=== PATIENT | female | born 1965 | race Two or more races ===

== ENCOUNTER 2021-09-24 22:23 | Inpatient (IN) ==
[2021-09-24] MEDS ORDERED: ZOSYN VIAL 3.375 GRAMS 3.375 G in NS 100 ML IV 100 ML IV ONE (23:09)
--- NOTE | 2021-09-24 23:13 | ED.ABDFE ---
HPI Time Seen Time Seen by Provider: 09/24/21 23:07 PCP Primary Care Physician: BEVERLY HPI Comment HPI Comment: PATIENT IS 56YR OLD IN ER WITH ABDOMINAL PAIN. SHE IS CALL TO COME TO ER BECAUSE OUT PATIENT CT ABDOMEN AND PELVIS DONE ON SUNDAY REPORTS IN CARCERATED SUPRAUMBILICAL HERNIA. SHE IS HERE FOR EMERGENT SURGICAL CONSULT. Complaint Doctors Chief Complaint Comments: ABDOMINAL PAIN. Chief Complaint:: PT AMBULATORY IN ED WITH C/O ABD PAIN. PT WAS NOTIFIED OF OUTPT CT READING AND INSTRUCTED TO COME TO ER. COVID-19 Coronavirus risk:travel/contact w/high risk person: No Has patient experienced Coronavirus symptoms: No Reviewed Nurses Notes Review: Yes Source History Provided: Patient Mode of arrival Mode of Arrival: Ambulatory Timing Onset of Chief Complaint: 09/24/21 Came on: Gradually Duration Since Onset: Intermittent Duration: Weeks Location Location: Periumbilical (MID ABDOMINAL PAIN.) Severity Severity: Moderate Quality Quality: Cramping and Sharp Context History of: Abdominal surgery Modifying factors Worsening Factors: Movement Improving Factors: Lying Still Associated signs and symptoms Associated Signs and Symptoms: None Other history Other History: PERSISTENT ABDOMINAL PAIN. PMH PMH Past Medical History: Yes Past Medical History: Diabetes and Hypertension Past Surgical History: Yes Surgical History: Cholecystectomy Past Surgical History Comment: HERNIA X 3 RIBS Family History History of Family Medical Conditions: Yes Family Medical History: Diabetes Mellitus Social History Does patient currently use any type of tobacco product: No Have you used tobacco products in the last 12 months: No Type of Tobacco Use: None Does any household member use tobacco: No Alcohol Use: None Do you use any recreational Drugs:: No Lives With: Family Lives Where: Home Travel Risk Coronavirus risk:travel/contact w/high risk person: No Has patient experienced Coronavirus symptoms: No Infectious screening In the last 2 months have you had wt loss of >10#?: NO Have you had fever, night sweats or hemotysis?: No Have you traveled outside the country in the last 6 months?: No Isolation: Standard ROS Review of Systems Constitutional: No Symptoms Reported and See HPI Eyes: No Symptoms Reported and See HPI ENTM: No Symptoms Reported and See HPI Respiratoy: No Symptoms Reported and See HPI Cardiovascular: No Symptoms Reported and See HPI Gastrointestinal/Abdominal: No Symptoms Reported and See HPI Genitourinary: No Symptoms Reported and See HPI Neurological: No Symptoms Reported and See HPI Musculoskeletal: No Symptoms Reported and See HPI Integumentary: No Symptoms Reported and See HPI Hematologic/Lymphatic: No Symptoms Reported and See HPI Endocrine: No Symptoms Reported and See HPI Psychiatric: No Symptoms Reported and See HPI All Other Systems: Reviewed and Negative PE Vital Signs Vitals: Temperature 98.2 F Pulse Rate 73 Respiratory Rate 20 Blood Pressure 182/93 O2 Sat by Pulse Oximetry 98 General Limitations: No Limitations and Language Barrier General Appearance: Alert and In No Apparent Distress Head Head Exam: Normal Inspection Eyes Eye exam: Normal Appearance ENT ENT Exam: Normal Exam Neck Neck Exam: Normal Inspection Chest Chest Inspection: Normal Inspection Respiratory Respiratory Exam: Normal Lung Sounds Bilat Cardiovascular Cardiovascular Exam: Regular Rate and Normal Rhythm Abdominal Exam Abdominal Exam: Normal Inspection and Normal Bowel Sounds Rectal Rectal Exam: Deferred Back Back Exam: Normal Inspection Extremeties Extremities Exam: Normal Inspection Neurologic Neurological Exam: Alert and Oriented X3 Psychiatric Psychiatric Exam: Normal Affect and Normal Mood Skin Skin Exam: Warm, Dry and Intact COURSE Treatment Treatment: SEE ORDERS DONE WHILE PATIENT WAS IN ER. Consultation Consultation Comments: DISCUSED PATIENT WITH DR. ANGELES. HE RECOMENT TUNNEL ELASTIC OPERATOR LOCKSTITCH DOCTOR TO ADMIT PATIENT AND KEEP HER NPO. WILL ADMIT PATIENT. Education/Counseling Education/Counseling: Patient Educated On: Diagnosis ROR Labs Reviewed Laboratory Results Reviewed?: Yes Result Diagrams: 09/25/21 04:37 09/25/21 04:37 Laboratory: WBC 4.7 X10^3/uL (3.6-10.0) 09/24/21 23:40 RBC 4.41 X10^6/uL (3.5-5.4) 09/24/21 23:40 Hgb 13.1 g/dL (12.0-16.0) 09/24/21 23:40 Hct 38.1 % (36.0-47.0) 09/24/21 23:40 MCV 86.4 fL (80.0-100.0) 09/24/21 23:40 MCH 29.8 pg (27.0-34.0) 09/24/21 23:40 MCHC 34.4 g/dL (33.0-35.0) 09/24/21 23:40 RDW 14.2 % (11.6-16.5) 09/24/21 23:40 Plt Count 172 X10^3/uL (150.0-450.0) 09/24/21 23:40 MPV 8.8 fL (7.4-11.0) 09/24/21 23:40 Neut % (Auto) 63.6 % (42.0-75.0) 09/24/21 23:40 Lymph % (Auto) 24.8 % (21.0-51.0) 09/24/21 23:40 [place] % (Auto) 8.7 % (0.0-13.0) 09/24/21 23:40 Eos % (Auto) 2.5 % (0.9-2.9) 09/24/21 23:40 Baso % (Auto) 0.4 % (0.2-1.0) 09/24/21 23:40 Neut # (Auto) 3.0 x10^3/uL (2.2-4.8) 09/24/21 23:40 Lymph # (Auto) 1.2 X10^3/uL (1.3-2.9) L 09/24/21 23:40 [place] # (Auto) 0.4 x10^3/uL (0.3-0.8) 09/24/21 23:40 Eos # (Auto) 0.1 x10^3/uL (0.0-0.2) 09/24/21 23:40 Baso # (Auto) 0.0 X10^3/uL (0.0-0.1) 09/24/21 23:40 Absolute Nucleated RBC 0.1 /100WBC 09/24/21 23:40 Sodium 139 mmol/L (136-145) 09/24/21 23:40 Corrected Sodium 144 mmol/L (136-145) 09/24/21 23:40 Potassium 3.4 mmol/L (3.5-5.1) L 09/24/21 23:40 Chloride 103 mmol/L (98-107) 09/24/21 23:40 Carbon Dioxide 29.3 mmol/L (21-32) 09/24/21 23:40 BUN 9 mg/dL (7-18) 09/24/21 23:40 Creatinine 0.67 mg/dL (0.55-1.02) 09/24/21 23:40 Est GFR (MDRD) Af Amer > 60 (>60) 09/24/21 23:40 Est GFR (MDRD) Non-Af > 60 (>60) 09/24/21 23:40 Glucose 303 mg/dL (65-99) H 09/24/21 23:40 Calcium 8.1 mg/dL (8.5-10.1) L 09/24/21 23:40 Corrected Calcium TNP 09/24/21 23:40 Total Bilirubin 0.40 mg/dL (0.2-1.0) 09/24/21 23:40 AST 78 Units/L (15-37) H 09/24/21 23:40 ALT 105 Units/L (12-78) H 09/24/21 23:40 Alkaline Phosphatase 163 Units/L (46-116) H 09/24/21 23:40 Total Protein 7.2 g/dL (6.4-8.2) 09/24/21 23:40 Albumin 3.4 g/dL (3.4-5.0) 09/24/21 23:40 Globulin 3.8 g/dL (2.5-4.5) 09/24/21 23:40 Albumin/Globulin Ratio 0.9 Ratio (1.1-2.1) L 09/24/21 23:40 Amylase 50 Units/L (25-115) 09/24/21 23:40 Lipase 94 Units/L (73-393) 09/24/21 23:40 SARS-CoV-2 (PCR) Negative (NEGATIVE) 09/24/21 23:58 Influenza Type A (PCR) Negative (NEGATIVE) 09/24/21 23:58 Influenza Type B (PCR) Negative (NEGATIVE) 09/24/21 23:58 RSV (PCR) Negative (NEGATIVE) 09/24/21 23:58 Other Results Comments: REVIEWED XRAY REPORT. Opioid Opioid Risk Tool Age ([place] box if 16-45): No History of Preadolescent Sexual Abuse: No Total: 0 Total Score Risk Category: Low Risk Copyright: Vasiliy SPENCE predicting aberrant behaviors Diagnosis Discharge Problem: Incarcerated umbilical hernia Abdominal pain Qualifiers: Abdominal location: periumbilical Qualified Code(s): R10.33 - Periumbilical pain
[2021-09-24] MEDS ORDERED: NS 1,000 ML IV 1,000 ML ONE (23:36)
[2021-09-24] MEDS: NS 1,000 ML IV 1,000 ML IV SCH (23:50)
[2021-09-24 23:53] LABS: BASOPHILS % (AUTO) 0.4 % (0.2-1.0); EOSINOPHILS # (AUTO) 0.1 x10^3/uL (0.0-0.2); EOSINOPHILS % (AUTO) 2.5 % (0.9-2.9); HEMATOCRIT 38.1 % (36.0-47.0); HEMOGLOBIN 13.1 g/dL (12.0-16.0); LYMPHOCYTES # (AUTO) 1.2 X10^3/uL (1.3-2.9); LYMPHOCYTES % (AUTO) 24.8 % (21.0-51.0); MEAN CORPUSCULAR HEMOGLOBIN 29.8 pg (27.0-34.0); MEAN CORPUSCULAR HGB CONC 34.4 g/dL (33.0-35.0); MEAN CORPUSCULAR VOLUME 86.4 fL (80.0-100.0); MEAN PLATELET VOLUME 8.8 fL (7.4-11.0); MONOCYTES # (AUTO) 0.4 x10^3/uL (0.3-0.8); MONOCYTES % (AUTO) 8.7 % (0.0-13.0); NEUTROPHILS % (AUTO) 63.6 % (42.0-75.0); RED BLOOD COUNT 4.41 X10^6/uL (3.5-5.4); RED CELL DISTRIBUTION WIDTH 14.2 % (11.6-16.5); WHITE BLOOD COUNT 4.7 X10^3/uL (3.6-10.0)
[2021-09-25 00:01] LABS: ALANINE AMINOTRANSFERASE 105 Units/L (12-78); ALBUMIN 3.4 g/dL (3.4-5.0); ALKALINE PHOSPHATASE 163 Units/L (46-116); AMYLASE 50 Units/L (25-115); ASPARTATE AMINO TRANSFERASE 78 Units/L (15-37); BLOOD UREA NITROGEN 9 mg/dL (7-18); CALCIUM 8.1 mg/dL (8.5-10.1); CARBON DIOXIDE 29.3 mmol/L (21-32); CHLORIDE 103 mmol/L (98-107); COR NA(FOR HYPERGLY) 144 mmol/L (136-145); CREATININE 0.67 mg/dL (0.55-1.02); LIPASE 94 Units/L (73-393); SODIUM 139 mmol/L (136-145); TOTAL PROTEIN 7.2 g/dL (6.4-8.2); eGFR NON BLACK RACES > 60 (>60)
[2021-09-25] MEDS ORDERED: ZOFRAN INJ 4 MG VIAL IVP PRN (00:20)
[2021-09-25] MEDS ORDERED: MORPHINE SULFATE INJ 2 MG INJ IVP PRN (00:20)
[2021-09-25] MEDS: LEVAQUIN PREMIX IV 500 MG 500 MG/100 ML BAG IV SCH (00:42)
[2021-09-25] MEDS ORDERED: NovoLIN R (or HumuLIN R) SUBCUT PRN (00:43)
[2021-09-25 01:25] VITALS: BMI 34.9
[2021-09-25 04:16] LABS: BILIRUBIN,URINE NEGATIVE (NEGATIVE); BLOOD/HEMOGLOBIN,URINE NEGATIVE (NEGATIVE); GLUCOSE, URINE NEGATIVE (NEGATIVE); KETONES,URINE NEGATIVE (NEGATIVE); LEUKOCYTE ESTERASE ,URINE 1+ (NEGATIVE); NITRITES,URINE NEGATIVE (NEGATIVE); PROTEIN,URINE NEGATIVE (NEGATIVE); UROBILINOGEN,URINE NORMAL (NORMAL)
[2021-09-25 04:22] LABS: APPEARANCE,URINE CLEAR (CLEAR); COLOR,URINE PALE YELLOW (YELLOW)
[2021-09-25 04:23] LABS: BACTERIA,URINE NEGATIVE /HPF (NEGATIVE); RBC,URINE 0-2 /HPF (0-3); SQUAMOUS EPITHELIAL CELL,UR RARE /HPF (NEGATIVE)
[2021-09-25 05:25] LABS: BASOPHILS % (AUTO) 0.5 % (0.2-1.0); EOSINOPHILS # (AUTO) 0.1 x10^3/uL (0.0-0.2); EOSINOPHILS % (AUTO) 1.8 % (0.9-2.9); HEMATOCRIT 36.5 % (36.0-47.0); HEMOGLOBIN 12.6 g/dL (12.0-16.0); LYMPHOCYTES # (AUTO) 1.1 X10^3/uL (1.3-2.9); LYMPHOCYTES % (AUTO) 21.5 % (21.0-51.0); MEAN CORPUSCULAR HEMOGLOBIN 29.6 pg (27.0-34.0); MEAN CORPUSCULAR HGB CONC 34.6 g/dL (33.0-35.0); MEAN CORPUSCULAR VOLUME 85.6 fL (80.0-100.0); MEAN PLATELET VOLUME 9.2 fL (7.4-11.0); MONOCYTES # (AUTO) 0.4 x10^3/uL (0.3-0.8); MONOCYTES % (AUTO) 8.1 % (0.0-13.0); NEUTROPHILS # (AUTO) 3.5 x10^3/uL (2.2-4.8); NEUTROPHILS % (AUTO) 68.1 % (42.0-75.0); RED BLOOD COUNT 4.26 X10^6/uL (3.5-5.4); RED CELL DISTRIBUTION WIDTH 13.9 % (11.6-16.5); WHITE BLOOD COUNT 5.1 X10^3/uL (3.6-10.0)
[2021-09-25 05:31] LABS: ALANINE AMINOTRANSFERASE 100 Units/L (12-78); ALBUMIN 3.1 g/dL (3.4-5.0); ALKALINE PHOSPHATASE 128 Units/L (46-116); ASPARTATE AMINO TRANSFERASE 74 Units/L (15-37); BLOOD UREA NITROGEN 8 mg/dL (7-18); CALCIUM 7.9 mg/dL (8.5-10.1); CARBON DIOXIDE 29.4 mmol/L (21-32); CHLORIDE 106 mmol/L (98-107); COR CA(FOR HYPOALB) 8.6 mg/dL (8.5-10.1); COR NA(FOR HYPERGLY) 141 mmol/L (136-145); CREATININE 0.56 mg/dL (0.55-1.02); MAGNESIUM 1.9 mg/dL (1.7-2.9); SODIUM 140 mmol/L (136-145); TOTAL PROTEIN 6.8 g/dL (6.4-8.2); eGFR NON BLACK RACES > 60 (>60)
[2021-09-25] MEDS ORDERED: KLOR-CON PO PRN (06:09)
[2021-09-25] MEDS ORDERED: POTASSIUM CHL 40 MEQ/NS 0.45% 500 ML IV PRN (06:09)
[2021-09-25] MEDS ORDERED: K-DUR TAB 20 MEQ PO PRN (06:09)
[2021-09-25] MEDS ORDERED: POTASSIUM CHL 60 MEQ/NS 0.45% 500 ML IV PRN (06:09)
[2021-09-25] MEDS ORDERED: POTASSIUM CHLORIDE LIQ 20 MEQ UDC PO PRN (06:09)
[2021-09-25] MEDS ORDERED: K-RIDER 10 MEQ/NS 100 ML 10 MEQ/100 ML BAG IV PRN (06:09)
[2021-09-25] MEDS ORDERED: MICRO K EXTEN CAP 10 MEQ PO PRN (06:09)
[2021-09-25] MEDS: NS 1,000 ML IV 1,000 ML IV SCH ×2 (08:24→17:02)
--- NOTE | 2021-09-25 11:25 | DR.H&P ---
H&P History & Physical for Day of: H&P Date: 09/25/21 Chief Complaint Chief Complaint: abdominal pain, abnormal CT Allergies Allergies Allergy/AdvReac Type Severity Reaction Status Date / Time Penicillins Allergy Verified 09/24/21 23:31 History of Present Illness History of Present Illness: Ms Davison is a 56y/o female with a PMH of diabetes, HTN and several abdominal hernia repairs presented for outpatient CTAP on 09/23/21 due to increased abdominal pain. Patient has a hx of 3 hernia repairs, last one in 2019. She denies N/V/D or constipation. Denies fever or chills. CTAP showed incarcerated umbilical ventral abdominal wall hernia, no strangulation or obstruction noted and recommended surgical consulted. Patient was notified and came to the ER for evaluation. She has some mild abdominal discomfort. She is NPO pending Dr Osborne's evaluation. Labs/imaging reviewed CTAP: Large supraumbilical ventral abdominal wall hernia with herniation of omental fat and small bowel loops through the defect. This is incarcerated but not yet strangulated. No obstructive pattern is yet seen. Subjacent mesenteric panniculitis is noted. A surgical consult is recommended for these findings. Plan: Keep NPO, continue hydration and IV levaquin. Follow surgery recomme ndations. Discussed with patient and family member at bedside. Monitor AM labs/imaging. Past Medical History Past Medical History: Diabetes and Hypertension Past Surgical History Surgical History: Cholecystectomy and Other Additional Surgical History: abdominal hernia repair Family History Family Medical History: Diabetes Mellitus Social History Does patient currently use any type of tobacco product: No Have you used tobacco products in the last 12 months: No Type of Tobacco Use: None Does any household member use tobacco: No Alcohol Use: None Drug Use: None Prescription drug monitoring program results: PDMP reviewed and no concerns identified Medications Home Medications: Penicillins Allergy (Verified 09/24/21 23:31) CONTINUE taking the following medications losartan 50 mg PO DAILY 09/24/21 [History] metformin 850 mg PO DAILY 09/24/21 [History] Labs Result Diagrams: 09/25/21 04:37 09/25/21 04:37 Labs: Laboratory WBC 5.1 X10^3/uL (3.6-10.0) 09/25/21 04:37 RBC 4.26 X10^6/uL (3.5-5.4) 09/25/21 04:37 Hgb 12.6 g/dL (12.0-16.0) 09/25/21 04:37 Hct 36.5 % (36.0-47.0) 09/25/21 04:37 MCV 85.6 fL (80.0-100.0) 09/25/21 04:37 MCH 29.6 pg (27.0-34.0) 09/25/21 04:37 MCHC 34.6 g/dL (33.0-35.0) 09/25/21 04:37 RDW 13.9 % (11.6-16.5) 09/25/21 04:37 Plt Count 175 X10^3/uL (150.0-450.0) 09/25/21 04:37 MPV 9.2 fL (7.4-11.0) 09/25/21 04:37 Neut % (Auto) 68.1 % (42.0-75.0) 09/25/21 04:37 Lymph % (Auto) 21.5 % (21.0-51.0) 09/25/21 04:37 [place] % (Auto) 8.1 % (0.0-13.0) 09/25/21 04:37 Eos % (Auto) 1.8 % (0.9-2.9) 09/25/21 04:37 Baso % (Auto) 0.5 % (0.2-1.0) 09/25/21 04:37 Neut # (Auto) 3.5 x10^3/uL (2.2-4.8) 09/25/21 04:37 Lymph # (Auto) 1.1 X10^3/uL (1.3-2.9) L 09/25/21 04:37 [place] # (Auto) 0.4 x10^3/uL (0.3-0.8) 09/25/21 04:37 Eos # (Auto) 0.1 x10^3/uL (0.0-0.2) 09/25/21 04:37 Baso # (Auto) 0.0 X10^3/uL (0.0-0.1) 09/25/21 04:37 Absolute Nucleated RBC 0.0 /100WBC 09/25/21 04:37 Sodium 140 mmol/L (136-145) 09/25/21 04:37 Corrected Sodium 141 mmol/L (136-145) 09/25/21 04:37 Potassium 3.8 mmol/L (3.5-5.1) 09/25/21 04:37 Chloride 106 mmol/L (98-107) 09/25/21 04:37 Carbon Dioxide 29.4 mmol/L (21-32) 09/25/21 04:37 BUN 8 mg/dL (7-18) 09/25/21 04:37 Creatinine 0.56 mg/dL (0.55-1.02) 09/25/21 04:37 Est GFR (MDRD) Af Amer > 60 (>60) 09/25/21 04:37 Est GFR (MDRD) Non-Af > 60 (>60) 09/25/21 04:37 Glucose 151 mg/dL (65-99) H 09/25/21 04:37 POC Glucose (mg/dL) 150 mg/dL (65-99) H 09/25/21 05:42 Calcium 7.9 mg/dL (8.5-10.1) L 09/25/21 04:37 Corrected Calcium 8.6 mg/dL (8.5-10.1) 09/25/21 04:37 Magnesium 1.9 mg/dL (1.7-2.9) 09/25/21 04:37 Magnesium 1.9 mg/dL (1.7-2.9) 09/25/21 04:37 Total Bilirubin 0.50 mg/dL (0.2-1.0) 09/25/21 04:37 AST 74 Units/L (15-37) H 09/25/21 04:37 ALT 100 Units/L (12-78) H 09/25/21 04:37 Alkaline Phosphatase 128 Units/L (46-116) H 09/25/21 04:37 Total Protein 6.8 g/dL (6.4-8.2) 09/25/21 04:37 Albumin 3.1 g/dL (3.4-5.0) L 09/25/21 04:37 Globulin 3.7 g/dL (2.5-4.5) 09/25/21 04:37 Albumin/Globulin Ratio 0.8 Ratio (1.1-2.1) L 09/25/21 04:37 Amylase 50 Units/L (25-115) 09/24/21 23:40 Lipase 94 Units/L (73-393) 09/24/21 23:40 Specimen Type Clean catch urine 09/25/21 04:00 Urine Color Pale yellow (YELLOW) 09/25/21 04:00 Urine Appearance Clear (CLEAR) 09/25/21 04:00 Urine pH 6.0 (5.0 - 8.0) 09/25/21 04:00 Ur Specific [place] 1.020 (1.000-1.030) 09/25/21 04:00 Urine Protein Negative (NEGATIVE) 09/25/21 04:00 Urine Glucose (UA) Negative (NEGATIVE) 09/25/21 04:00 Urine Ketones Negative (NEGATIVE) 09/25/21 04:00 Urine Blood Negative (NEGATIVE) 09/25/21 04:00 Urine Nitrite Negative (NEGATIVE) 09/25/21 04:00 Urine Bilirubin Negative (NEGATIVE) 09/25/21 04:00 Urine Urobilinogen Normal (NORMAL) 09/25/21 04:00 Ur Leukocyte Esterase 1+ (NEGATIVE) 09/25/21 04:00 Urine RBC 0-2 /HPF (0-3) 09/25/21 04:00 Urine WBC 0-2 /HPF (0-5) 09/25/21 04:00 Ur Squamous Epith Cells Rare /HPF (NEGATIVE) 09/25/21 04:00 Urine Bacteria Negative /HPF (NEGATIVE) 09/25/21 04:00 Ur Culture Indicated? No/not indicated 09/25/21 04:00 SARS-CoV-2 (PCR) Negative (NEGATIVE) 09/24/21 23:58 Influenza Type A (PCR) Negative (NEGATIVE) 09/24/21 23:58 Influenza Type B (PCR) Negative (NEGATIVE) 09/24/21 23:58 RSV (PCR) Negative (NEGATIVE) 09/24/21 23:58 Review of Systems Constitutional: No Symptoms Reported Eyes: No Symptoms Reported ENT: No Symptoms Reported Respiratory: No Symptoms Reported Cardiovascular: No Symptoms Reported Gastrointestinal: Abdominal Pain Genitourinary: No Symptoms Reported Musculoskeletal: No Symptoms Reported Skin: No Symptoms Reported Neurological: No Symptoms Reported Physical Exam Vital Signs: Temperature 97 F Pulse Rate [Right] 67 Pulse Rate 73 Respiratory Rate 18 Blood Pressure [Right Arm] 137/66 Blood Pressure 182/93 O2 Sat by Pulse Oximetry 96 Oriented: Normal Eyes: Normal Ear: Normal Nose: Normal Throat: Normal Respiratory: Clear Throughout Cardiovascular: Normal Auscultation: Bowel Sounds: Normal Tenderness: Epigastric, Periumbilical and Mild Skin: Normal Musculoskeletal: Normal Psychiatric: Normal Mood Description: Calm Affect: Normal Speech Pattern: Clear and Appropriate Assessment/Plan (1) Incarcerated umbilical hernia: Status: Acute (2) Abdominal pain: Qualifiers: Abdominal location: periumbilical Qualified Code(s): R10.33 - Periumbilical pain Status: Acute (3) HTN (hypertension): Qualifiers: Hypertension type: primary hypertension Qualified Code(s): I10 - Essential (primary) hypertension Status: Acute (4) Diabetes: Qualifiers: Diabetes mellitus complication status: without complication Diabetes mellitus prison insulin use: without prison use Diabetes mellitus type: type 2 Qualified Code(s): E11.9 - Type 2 diabetes mellitus without complications Status: Acute Review H&P Reviewed: Yes Patient was examined?: Yes
[2021-09-25] MEDS: COZAAR PO SCH (13:43)
[2021-09-25] MEDS: GLUCOPHAGE PO SCH (13:43)
[2021-09-25] MEDS: SNACK - Diabetic Appropriate PO SCH (21:28)
[2021-09-25] MEDS: MAGNESIUM SULFATE 1 GRAM/100 mL PREMIX 1 G/100 ML BAG IV PRN ×2 (21:45→23:51)
[2021-09-26] MEDS: NS 1,000 ML IV 1,000 ML IV SCH ×3 (02:36→14:10)
[2021-09-26 04:58] LABS: ALANINE AMINOTRANSFERASE 97 Units/L (12-78); ALKALINE PHOSPHATASE 92 Units/L (46-116); ASPARTATE AMINO TRANSFERASE 67 Units/L (15-37); BLOOD UREA NITROGEN 9 mg/dL (7-18); CALCIUM 8.1 mg/dL (8.5-10.1); CARBON DIOXIDE 28.2 mmol/L (21-32); CHLORIDE 106 mmol/L (98-107); COR CA(FOR HYPOALB) 8.9 mg/dL (8.5-10.1); COR NA(FOR HYPERGLY) 141 mmol/L (136-145); CREATININE 0.61 mg/dL (0.55-1.02); MAGNESIUM 2.4 mg/dL (1.7-2.9); SODIUM 140 mmol/L (136-145); TOTAL PROTEIN 6.6 g/dL (6.4-8.2); eGFR NON BLACK RACES > 60 (>60)
[2021-09-26 05:36] LABS: BASOPHILS % (AUTO) 0.5 % (0.2-1.0); EOSINOPHILS # (AUTO) 0.1 x10^3/uL (0.0-0.2); EOSINOPHILS % (AUTO) 2.2 % (0.9-2.9); HEMATOCRIT 37.7 % (36.0-47.0); LYMPHOCYTES # (AUTO) 1.3 X10^3/uL (1.3-2.9); LYMPHOCYTES % (AUTO) 23.7 % (21.0-51.0); MEAN CORPUSCULAR HEMOGLOBIN 29.8 pg (27.0-34.0); MEAN CORPUSCULAR HGB CONC 34.4 g/dL (33.0-35.0); MEAN CORPUSCULAR VOLUME 86.5 fL (80.0-100.0); MEAN PLATELET VOLUME 9.1 fL (7.4-11.0); MONOCYTES # (AUTO) 0.4 x10^3/uL (0.3-0.8); MONOCYTES % (AUTO) 7.4 % (0.0-13.0); NEUTROPHILS # (AUTO) 3.6 x10^3/uL (2.2-4.8); NEUTROPHILS % (AUTO) 66.2 % (42.0-75.0); RED BLOOD COUNT 4.35 X10^6/uL (3.5-5.4); RED CELL DISTRIBUTION WIDTH 14.4 % (11.6-16.5); WHITE BLOOD COUNT 5.5 X10^3/uL (3.6-10.0)
[2021-09-26] MEDS ORDERED: POLYMYXIN B SULFATE ONE (07:46)
[2021-09-26] MEDS ORDERED: MARCAINE 0.25% INJ ONE (07:46)
[2021-09-26] MEDS ORDERED: BETADINE SOLN ONE (07:47)
[2021-09-26] MEDS ORDERED: ZOFRAN INJ 4 MG VIAL ONE (08:15)
[2021-09-26] MEDS ORDERED: BRIDION ONE (08:15)
[2021-09-26] MEDS ORDERED: ZEMURON 100 MG VIAL ONE (08:15)
[2021-09-26] MEDS ORDERED: DIPRIVAN VIAL 20 ML ONE (08:15)
[2021-09-26] MEDS ORDERED: TORADOL 30 MG VIAL ONE (08:15)
[2021-09-26] MEDS ORDERED: OFIRMEV IV 1000 MG VIAL 1,000 MG/100 ML VIAL IV ONE (08:15)
[2021-09-26] MEDS ORDERED: PEPCID 20 MG VIAL ONE (08:15)
[2021-09-26] MEDS ORDERED: VERSED ONE (08:16)
[2021-09-26] MEDS ORDERED: FENTANYL VIAL INJ 100 mcg ONE ×2 (08:16→09:16)
[2021-09-26] MEDS ORDERED: NS 1,000 ML IV 1,000 ML ONE (08:18)
[2021-09-26] MEDS: COZAAR PO SCH (08:22)
[2021-09-26] MEDS: GLUCOPHAGE PO SCH (08:22)
[2021-09-26] MEDS ORDERED: LEVAQUIN PREMIX IV 500 MG 500 MG/100 ML BAG IV ONE (08:30)
[2021-09-26] MEDS ORDERED: SUPRANE ONE (08:44)
[2021-09-26] MEDS ORDERED: XYLOCAINE JELLY TOP ONE (08:44)
--- NOTE | 2021-09-26 08:54 | PCM.PROG ---
Progress Note Progress Note for Day of Date of Exam: 09/26/21 Subjective Subjective: Patient seen at bedside, no acute events overnight. She is NPO for surgery today. Patient was seen by Dr Osborne yesterday and will be having hernia repair. She continues to have abdominal pain, denies N/V. Last BM was yesterday. Labs reviewed Plan: continue NPO for now, continue hydration and IV antibiotics. Surgery as per Dr Osborne. Will resume meds and diet after procedure. Discussed with family member at bedside. Past Medical Family Social History Past Med/Fam/Surg Hx: No changes since H&P Allergies: Allergies Penicillins Allergy (Verified 09/24/21 23:31) Review of Systems ROS: No change since H&P Vital Signs and I&O's Vital Signs: Temperature 97.8 F Pulse Rate [Right] 52 Pulse Rate 60 Respiratory Rate 18 Blood Pressure [Left Arm] 118/59 Blood Pressure [Right Arm] 130/64 Blood Pressure 135/80 O2 Sat by Pulse Oximetry 93 Intake and Output: Intake & Output 09/23/21 09/24/21 09/25/21 09/26/21 23:59 23:59 23:59 23:59 Intake Total 3495 / 3495 722 / 722 Balance 3495 / 3495 722 / 722 Physical Exam Oriented: Normal Eyes: Normal Ear: Normal Nose: Normal Throat: Normal Respiratory: Normal Cardiovascular: Normal Auscultation: Bowel Sounds: Normal Tenderness: Periumbilical and Mild; negative Guarding and Rigidity Skin: Normal Musculoskeletal: Normal Psychiatric: Normal Mood Description: Calm Affect: Normal Speech Pattern: Clear and Appropriate Laboratory and Diagnostics Result Diagrams: 09/26/21 05:24 09/26/21 04:27 Labs: Laboratory WBC 5.5 X10^3/uL (3.6-10.0) 09/26/21 05:24 RBC 4.35 X10^6/uL (3.5-5.4) 09/26/21 05:24 Hgb 13.0 g/dL (12.0-16.0) 09/26/21 05:24 Hct 37.7 % (36.0-47.0) 09/26/21 05:24 MCV 86.5 fL (80.0-100.0) 09/26/21 05:24 MCH 29.8 pg (27.0-34.0) 09/26/21 05:24 MCHC 34.4 g/dL (33.0-35.0) 09/26/21 05:24 RDW 14.4 % (11.6-16.5) 09/26/21 05:24 Plt Count 180 X10^3/uL (150.0-450.0) 09/26/21 05:24 MPV 9.1 fL (7.4-11.0) 09/26/21 05:24 Neut % (Auto) 66.2 % (42.0-75.0) 09/26/21 05:24 Lymph % (Auto) 23.7 % (21.0-51.0) 09/26/21 05:24 [place] % (Auto) 7.4 % (0.0-13.0) 09/26/21 05:24 Eos % (Auto) 2.2 % (0.9-2.9) 09/26/21 05:24 Baso % (Auto) 0.5 % (0.2-1.0) 09/26/21 05:24 Neut # (Auto) 3.6 x10^3/uL (2.2-4.8) 09/26/21 05:24 Lymph # (Auto) 1.3 X10^3/uL (1.3-2.9) 09/26/21 05:24 [place] # (Auto) 0.4 x10^3/uL (0.3-0.8) 09/26/21 05:24 Eos # (Auto) 0.1 x10^3/uL (0.0-0.2) 09/26/21 05:24 Baso # (Auto) 0.0 X10^3/uL (0.0-0.1) 09/26/21 05:24 Absolute Nucleated RBC 0.0 /100WBC 09/26/21 05:24 Sodium 140 mmol/L (136-145) 09/26/21 04:27 Corrected Sodium 141 mmol/L (136-145) 09/26/21 04:27 Potassium 4.2 mmol/L (3.5-5.1) 09/26/21 04:27 Chloride 106 mmol/L (98-107) 09/26/21 04:27 Carbon Dioxide 28.2 mmol/L (21-32) 09/26/21 04:27 BUN 9 mg/dL (7-18) 09/26/21 04:27 Creatinine 0.61 mg/dL (0.55-1.02) 09/26/21 04:27 Est GFR (MDRD) Af Amer > 60 (>60) 09/26/21 04:27 Est GFR (MDRD) Non-Af > 60 (>60) 09/26/21 04:27 Glucose 140 mg/dL (65-99) H 09/26/21 04:27 POC Glucose (mg/dL) 198 mg/dL (65-99) H 09/25/21 20:17 Calcium 8.1 mg/dL (8.5-10.1) L 09/26/21 04:27 Corrected Calcium 8.9 mg/dL (8.5-10.1) 09/26/21 04:27 Magnesium 2.4 mg/dL (1.7-2.9) 09/26/21 04:27 Total Bilirubin 0.60 mg/dL (0.2-1.0) 09/26/21 04:27 AST 67 Units/L (15-37) H 09/26/21 04:27 ALT 97 Units/L (12-78) H 09/26/21 04:27 Alkaline Phosphatase 92 Units/L (46-116) 09/26/21 04:27 Total Protein 6.6 g/dL (6.4-8.2) 09/26/21 04:27 Albumin 3.0 g/dL (3.4-5.0) L 09/26/21 04:27 Globulin 3.6 g/dL (2.5-4.5) 09/26/21 04:27 Albumin/Globulin Ratio 0.8 Ratio (1.1-2.1) L 09/26/21 04:27 Amylase 50 Units/L (25-115) 09/24/21 23:40 Lipase 94 Units/L (73-393) 09/24/21 23:40 Specimen Type Clean catch urine 09/25/21 04:00 Urine Color Pale yellow (YELLOW) 09/25/21 04:00 Urine Appearance Clear (CLEAR) 09/25/21 04:00 Urine pH 6.0 (5.0 - 8.0) 09/25/21 04:00 Ur Specific [place] 1.020 (1.000-1.030) 09/25/21 04:00 Urine Protein Negative (NEGATIVE) 09/25/21 04:00 Urine Glucose (UA) Negative (NEGATIVE) 09/25/21 04:00 Urine Ketones Negative (NEGATIVE) 09/25/21 04:00 Urine Blood Negative (NEGATIVE) 09/25/21 04:00 Urine Nitrite Negative (NEGATIVE) 09/25/21 04:00 Urine Bilirubin Negative (NEGATIVE) 09/25/21 04:00 Urine Urobilinogen Normal (NORMAL) 09/25/21 04:00 Ur Leukocyte Esterase 1+ (NEGATIVE) 09/25/21 04:00 Urine RBC 0-2 /HPF (0-3) 09/25/21 04:00 Urine WBC 0-2 /HPF (0-5) 09/25/21 04:00 Ur Squamous Epith Cells Rare /HPF (NEGATIVE) 09/25/21 04:00 Urine Bacteria Negative /HPF (NEGATIVE) 09/25/21 04:00 Ur Culture Indicated? No/not indicated 09/25/21 04:00 SARS-CoV-2 (PCR) Negative (NEGATIVE) 09/24/21 23:58 Influenza Type A (PCR) Negative (NEGATIVE) 09/24/21 23:58 Influenza Type B (PCR) Negative (NEGATIVE) 09/24/21 23:58 RSV (PCR) Negative (NEGATIVE) 09/24/21 23:58 Plan (1) Incarcerated umbilical hernia: Status: Acute (2) Abdominal pain: Status: Acute Qualifiers: Abdominal location: periumbilical Qualified Code(s): R10.33 - Periumbilical pain (3) HTN (hypertension): Status: Acute Qualifiers: Hypertension type: primary hypertension Qualified Code(s): I10 - Essential (primary) hypertension (4) Diabetes: Status: Acute Qualifiers: Diabetes mellitus complication status: without complication Diabetes mellitus residential insulin use: without extermination supervisor use Diabetes mellitus type: type 2 Qualified Code(s): E11.9 - Type 2 diabetes mellitus without complications
[2021-09-26 09:33] LABS: BILIRUBIN,URINE NEGATIVE (NEGATIVE); BLOOD/HEMOGLOBIN,URINE NEGATIVE (NEGATIVE); GLUCOSE, URINE NEGATIVE (NEGATIVE); KETONES,URINE NEGATIVE (NEGATIVE); LEUKOCYTE ESTERASE ,URINE NEGATIVE (NEGATIVE); NITRITES,URINE NEGATIVE (NEGATIVE); PROTEIN,URINE NEGATIVE (NEGATIVE); UROBILINOGEN,URINE NORMAL (NORMAL)
[2021-09-26 09:34] LABS: APPEARANCE,URINE CLEAR (CLEAR); COLOR,URINE YELLOW (YELLOW)
[2021-09-26] MEDS ORDERED: ROBINUL ONE (09:53)
[2021-09-26] MEDS ORDERED: DILAUDID INJ ONE ×2 (10:01→10:50)
[2021-09-26] MEDS ORDERED: PHENERGAN INJ 25 MG IM PRN (10:35)
[2021-09-26] MEDS ORDERED: BARHEMSYS INJ IVP PRN (10:35)
[2021-09-26] MEDS ORDERED: REGLAN INJ 10 MG VIAL IVP PRN (10:35)
[2021-09-26] MEDS ORDERED: ZOFRAN INJ 4 MG VIAL IVP PRN (10:35)
[2021-09-26] MEDS ORDERED: BENADRYL INJ 50 MG VIAL IVP PRN (10:35)
[2021-09-26] MEDS: DILAUDID INJ IVP PRN ×2 (10:53→11:00)
[2021-09-26] MEDS ORDERED: DILAUDID INJ IVP PRN (10:57)
[2021-09-26] MEDS: ZOFRAN INJ 4 MG VIAL IVP PRN ×2 (11:40→20:32)
[2021-09-26] MEDS: D5 1/2 NS 1,000 ML 1,000 ML IV SCH (11:55)
[2021-09-26] MEDS: MORPHINE SULFATE INJ 4 MG IVP PRN (12:23)
[2021-09-26] MEDS ORDERED: MAALOX or MYLANTA PO PRN (18:25)
[2021-09-26] MEDS: SNACK - Diabetic Appropriate PO SCH (20:32)
[2021-09-27] MEDS: D5 1/2 NS 1,000 ML 1,000 ML IV SCH ×2 (00:51→12:30)
[2021-09-27] MEDS: LEVAQUIN PREMIX IV 500 MG 500 MG/100 ML BAG IV SCH (01:27)
[2021-09-27] MEDS: ZOFRAN INJ 4 MG VIAL IVP PRN ×3 (04:57→19:11)
[2021-09-27] MEDS: MORPHINE SULFATE INJ 4 MG IVP PRN ×3 (04:57→17:38)
[2021-09-27 05:20] LABS: BASOPHILS % (AUTO) 0.3 % (0.2-1.0); EOSINOPHILS % (AUTO) 0.3 % (0.9-2.9); HEMOGLOBIN 11.9 g/dL (12.0-16.0); LYMPHOCYTES # (AUTO) 1.2 X10^3/uL (1.3-2.9); LYMPHOCYTES % (AUTO) 14.1 % (21.0-51.0); MEAN CORPUSCULAR HEMOGLOBIN 30.3 pg (27.0-34.0); MEAN CORPUSCULAR HGB CONC 35.1 g/dL (33.0-35.0); MEAN CORPUSCULAR VOLUME 86.2 fL (80.0-100.0); MEAN PLATELET VOLUME 9.1 fL (7.4-11.0); MONOCYTES # (AUTO) 0.8 x10^3/uL (0.3-0.8); MONOCYTES % (AUTO) 8.5 % (0.0-13.0); NEUTROPHILS # (AUTO) 6.8 x10^3/uL (2.2-4.8); NEUTROPHILS % (AUTO) 76.8 % (42.0-75.0); RED BLOOD COUNT 3.94 X10^6/uL (3.5-5.4); RED CELL DISTRIBUTION WIDTH 14.1 % (11.6-16.5); WHITE BLOOD COUNT 8.9 X10^3/uL (3.6-10.0)
[2021-09-27 05:36] LABS: ALANINE AMINOTRANSFERASE 88 Units/L (12-78); ALBUMIN 2.9 g/dL (3.4-5.0); ALKALINE PHOSPHATASE 79 Units/L (46-116); ASPARTATE AMINO TRANSFERASE 55 Units/L (15-37); BLOOD UREA NITROGEN 8 mg/dL (7-18); CALCIUM 7.8 mg/dL (8.5-10.1); CARBON DIOXIDE 28.8 mmol/L (21-32); CHLORIDE 105 mmol/L (98-107); COR CA(FOR HYPOALB) 8.7 mg/dL (8.5-10.1); COR NA(FOR HYPERGLY) 140 mmol/L (136-145); CREATININE 0.64 mg/dL (0.55-1.02); SODIUM 139 mmol/L (136-145); TOTAL PROTEIN 6.2 g/dL (6.4-8.2); eGFR NON BLACK RACES > 60 (>60)
[2021-09-27] MEDS: GLUCOPHAGE PO SCH (08:38)
[2021-09-27] MEDS: COZAAR PO SCH (08:38)
[2021-09-27] MEDS: PERCOCET TAB 5/325 MG PO PRN ×2 (08:50→16:48)
--- NOTE | 2021-09-27 08:56 | DR.PROGNOT ---
Hospital Progress Notes - Progress Note for Day of: Progress Note Date: 09/27/21 - Chief Complaint Chief Complaint: less incisional pain .. minimal drainage in QIANA . OOB and tolerating diet well. afebrile . - Past Medical Family Social History Past Med/Fam/Surg Hx: No changes since H&P Allergies: Allergies Penicillins Allergy (Verified 09/24/21 23:31) - Review Of Systems ROS: No change since H&P - Vital Signs Vital Signs: Temperature 98.1 F Pulse Rate [Right] 58 Pulse Rate 98 Respiratory Rate 18 Blood Pressure [Left Arm] 107/63 Blood Pressure [Right Arm] 130/64 Blood Pressure 135/69 O2 Sat by Pulse Oximetry 95 - Physical Exam Oriented: Normal Eyes: Normal Ear: Normal Nose: Normal Throat: Normal Respiratory: Normal Cardiovascular: Normal GI:Auscultation: Normal GI: Tenderness: Periumbilical (soft. flat abdomen . BS+), Mild. negative: Guarding, Rigidity Skin: Normal Musculoskeletal: Normal Psychiatric: Normal Mood Description: Calm Affect: Normal Speech Pattern: Clear, Appropriate - Laboratory and Diagnostics Result Diagrams: 09/27/21 04:47 09/27/21 00:47 Labs: Laboratory WBC 8.9 X10^3/uL (3.6-10.0) 09/27/21 04:47 RBC 3.94 X10^6/uL (3.5-5.4) 09/27/21 04:47 Hgb 11.9 g/dL (12.0-16.0) L 09/27/21 04:47 Hct 34.0 % (36.0-47.0) L 09/27/21 04:47 MCV 86.2 fL (80.0-100.0) 09/27/21 04:47 MCH 30.3 pg (27.0-34.0) 09/27/21 04:47 MCHC 35.1 g/dL (33.0-35.0) H 09/27/21 04:47 RDW 14.1 % (11.6-16.5) 09/27/21 04:47 Plt Count 177 X10^3/uL (150.0-450.0) 09/27/21 04:47 MPV 9.1 fL (7.4-11.0) 09/27/21 04:47 Neut % (Auto) 76.8 % (42.0-75.0) H 09/27/21 04:47 Lymph % (Auto) 14.1 % (21.0-51.0) L 09/27/21 04:47 [place] % (Auto) 8.5 % (0.0-13.0) 09/27/21 04:47 Eos % (Auto) 0.3 % (0.9-2.9) L 09/27/21 04:47 Baso % (Auto) 0.3 % (0.2-1.0) 09/27/21 04:47 Neut # (Auto) 6.8 x10^3/uL (2.2-4.8) H 09/27/21 04:47 Lymph # (Auto) 1.2 X10^3/uL (1.3-2.9) L 09/27/21 04:47 [place] # (Auto) 0.8 x10^3/uL (0.3-0.8) 09/27/21 04:47 Eos # (Auto) 0.0 x10^3/uL (0.0-0.2) 09/27/21 04:47 Baso # (Auto) 0.0 X10^3/uL (0.0-0.1) 09/27/21 04:47 Absolute Nucleated RBC 0.0 /100WBC 09/27/21 04:47 Sodium 139 mmol/L (136-145) 09/27/21 00:47 Corrected Sodium 140 mmol/L (136-145) 09/27/21 00:47 Potassium 3.5 mmol/L (3.5-5.1) 09/27/21 00:47 Chloride 105 mmol/L (98-107) 09/27/21 00:47 Carbon Dioxide 28.8 mmol/L (21-32) 09/27/21 00:47 BUN 8 mg/dL (7-18) 09/27/21 00:47 Creatinine 0.64 mg/dL (0.55-1.02) 09/27/21 00:47 Est GFR (MDRD) Af Amer > 60 (>60) 09/27/21 00:47 Est GFR (MDRD) Non-Af > 60 (>60) 09/27/21 00:47 Glucose 141 mg/dL (65-99) H 09/27/21 00:47 POC Glucose (mg/dL) 198 mg/dL (65-99) H 09/26/21 20:41 Calcium 7.8 mg/dL (8.5-10.1) L 09/27/21 00:47 Corrected Calcium 8.7 mg/dL (8.5-10.1) 09/27/21 00:47 Magnesium 2.4 mg/dL (1.7-2.9) 09/26/21 04:27 Total Bilirubin 0.60 mg/dL (0.2-1.0) 09/27/21 00:47 AST 55 Units/L (15-37) H 09/27/21 00:47 ALT 88 Units/L (12-78) H 09/27/21 00:47 Alkaline Phosphatase 79 Units/L (46-116) 09/27/21 00:47 Total Protein 6.2 g/dL (6.4-8.2) L 09/27/21 00:47 Albumin 2.9 g/dL (3.4-5.0) L 09/27/21 00:47 Globulin 3.3 g/dL (2.5-4.5) 09/27/21 00:47 Albumin/Globulin Ratio 0.9 Ratio (1.1-2.1) L 09/27/21 00:47 Amylase 50 Units/L (25-115) 09/24/21 23:40 Lipase 94 Units/L (73-393) 09/24/21 23:40 Specimen Type Catherized urine 09/26/21 09:13 Urine Color Yellow (YELLOW) 09/26/21 09:13 Urine Appearance Clear (CLEAR) 09/26/21 09:13 Urine pH 6.0 (5.0 - 8.0) 09/26/21 09:13 Ur Specific [place] 1.010 (1.000-1.030) 09/26/21 09:13 Urine Protein Negative (NEGATIVE) 09/26/21 09:13 Urine Glucose (UA) Negative (NEGATIVE) 09/26/21 09:13 Urine Ketones Negative (NEGATIVE) 09/26/21 09:13 Urine Blood Negative (NEGATIVE) 09/26/21 09:13 Urine Nitrite Negative (NEGATIVE) 09/26/21 09:13 Urine Bilirubin Negative (NEGATIVE) 09/26/21 09:13 Urine Urobilinogen Normal (NORMAL) 09/26/21 09:13 Ur Leukocyte Esterase Negative (NEGATIVE) 09/26/21 09:13 Urine RBC 0-2 /HPF (0-3) 09/25/21 04:00 Urine WBC 0-2 /HPF (0-5) 09/25/21 04:00 Ur Squamous Epith Cells Rare /HPF (NEGATIVE) 09/25/21 04:00 Urine Bacteria Negative /HPF (NEGATIVE) 09/25/21 04:00 Ur Culture Indicated? No/not indicated 09/25/21 04:00 SARS-CoV-2 (PCR) Negative (NEGATIVE) 09/24/21 23:58 Influenza Type A (PCR) Negative (NEGATIVE) 09/24/21 23:58 Influenza Type B (PCR) Negative (NEGATIVE) 09/24/21 23:58 RSV (PCR) Negative (NEGATIVE) 09/24/21 23:58 Tissue Pathology To follow 09/26/21 09:30 - Assessment and Plan 3: s/p laparotomy and repair of incarcerated , recurrent ventral hernia , partial omentectomy , excision of old mesh .. to advance diet , remove the drain later on . august d/c in AM .. - Problem Patient Problems: Patient Problems Incarcerated umbilical hernia (Acute) K42.0 Abdominal pain (Acute) R10.9
--- NOTE | 2021-09-27 12:20 | PCM.PROG ---
Progress Note Progress Note for Day of Date of Exam: 09/27/21 Subjective Subjective: Patient seen at bedside, no acute events overnight. Patient had hernia repair surgery yesterday, went well with no complications. She is doing well post-op. Her pain has been controlled. She has been tolerating clear liquids. Patient has been ambulating to the bathroom. No BM yet. She has a QIANA drain. Labs reviewed Plan: follow plans as per surgery, QIANA drain removal today. Advance diet as per Dr Osborne. Continue pain control and anti-emetics. Continue current medications. Possible discharge tomorrow. Monitor AM labs. Past Medical Family Social History Past Med/Fam/Surg Hx: No changes since H&P Allergies: Allergies Penicillins Allergy (Verified 09/24/21 23:31) Review of Systems ROS: No change since H&P Vital Signs and I&O's Vital Signs: Temperature 98.1 F Pulse Rate [Right] 58 Pulse Rate 98 Respiratory Rate 18 Blood Pressure [Left Arm] 107/63 Blood Pressure [Right Arm] 130/64 Blood Pressure 135/69 O2 Sat by Pulse Oximetry 95 Intake and Output: Intake & Output 09/24/21 09/25/21 09/26/21 09/27/21 23:59 23:59 23:59 23:59 Intake Total 3495 / 3495 4867 / 4867 764 / 764 Output Total 1330 / 1330 15 / 15 Balance 3495 / 3495 3537 / 3537 749 / 749 Physical Exam Oriented: Normal Eyes: Normal Ear: Normal Nose: Normal Throat: Normal Respiratory: Normal Cardiovascular: Normal Auscultation: Bowel Sounds: Normal Tenderness: Periumbilical (soft, BS+. Dressing and drain intact ) and Mild; negative Guarding or Rigidity Skin: Normal Musculoskeletal: Normal Psychiatric: Normal Mood Description: Calm Affect: Normal Speech Pattern: Clear and Appropriate Laboratory and Diagnostics Result Diagrams: 09/27/21 04:47 09/27/21 00:47 Labs: Laboratory WBC 8.9 X10^3/uL (3.6-10.0) 09/27/21 04:47 RBC 3.94 X10^6/uL (3.5-5.4) 09/27/21 04:47 Hgb 11.9 g/dL (12.0-16.0) L 09/27/21 04:47 Hct 34.0 % (36.0-47.0) L 09/27/21 04:47 MCV 86.2 fL (80.0-100.0) 09/27/21 04:47 MCH 30.3 pg (27.0-34.0) 09/27/21 04:47 MCHC 35.1 g/dL (33.0-35.0) H 09/27/21 04:47 RDW 14.1 % (11.6-16.5) 09/27/21 04:47 Plt Count 177 X10^3/uL (150.0-450.0) 09/27/21 04:47 MPV 9.1 fL (7.4-11.0) 09/27/21 04:47 Neut % (Auto) 76.8 % (42.0-75.0) H 09/27/21 04:47 Lymph % (Auto) 14.1 % (21.0-51.0) L 09/27/21 04:47 [place] % (Auto) 8.5 % (0.0-13.0) 09/27/21 04:47 Eos % (Auto) 0.3 % (0.9-2.9) L 09/27/21 04:47 Baso % (Auto) 0.3 % (0.2-1.0) 09/27/21 04:47 Neut # (Auto) 6.8 x10^3/uL (2.2-4.8) H 09/27/21 04:47 Lymph # (Auto) 1.2 X10^3/uL (1.3-2.9) L 09/27/21 04:47 [place] # (Auto) 0.8 x10^3/uL (0.3-0.8) 09/27/21 04:47 Eos # (Auto) 0.0 x10^3/uL (0.0-0.2) 09/27/21 04:47 Baso # (Auto) 0.0 X10^3/uL (0.0-0.1) 09/27/21 04:47 Absolute Nucleated RBC 0.0 /100WBC 09/27/21 04:47 Sodium 139 mmol/L (136-145) 09/27/21 00:47 Corrected Sodium 140 mmol/L (136-145) 09/27/21 00:47 Potassium 3.5 mmol/L (3.5-5.1) 09/27/21 00:47 Chloride 105 mmol/L (98-107) 09/27/21 00:47 Carbon Dioxide 28.8 mmol/L (21-32) 09/27/21 00:47 BUN 8 mg/dL (7-18) 09/27/21 00:47 Creatinine 0.64 mg/dL (0.55-1.02) 09/27/21 00:47 Est GFR (MDRD) Af Amer > 60 (>60) 09/27/21 00:47 Est GFR (MDRD) Non-Af > 60 (>60) 09/27/21 00:47 Glucose 141 mg/dL (65-99) H 09/27/21 00:47 POC Glucose (mg/dL) 167 mg/dL (65-99) H 09/27/21 11:17 Calcium 7.8 mg/dL (8.5-10.1) L 09/27/21 00:47 Corrected Calcium 8.7 mg/dL (8.5-10.1) 09/27/21 00:47 Magnesium 2.4 mg/dL (1.7-2.9) 09/26/21 04:27 Total Bilirubin 0.60 mg/dL (0.2-1.0) 09/27/21 00:47 AST 55 Units/L (15-37) H 09/27/21 00:47 ALT 88 Units/L (12-78) H 09/27/21 00:47 Alkaline Phosphatase 79 Units/L (46-116) 09/27/21 00:47 Total Protein 6.2 g/dL (6.4-8.2) L 09/27/21 00:47 Albumin 2.9 g/dL (3.4-5.0) L 09/27/21 00:47 Globulin 3.3 g/dL (2.5-4.5) 09/27/21 00:47 Albumin/Globulin Ratio 0.9 Ratio (1.1-2.1) L 09/27/21 00:47 Amylase 50 Units/L (25-115) 09/24/21 23:40 Lipase 94 Units/L (73-393) 09/24/21 23:40 Specimen Type Catherized urine 09/26/21 09:13 Urine Color Yellow (YELLOW) 09/26/21 09:13 Urine Appearance Clear (CLEAR) 09/26/21 09:13 Urine pH 6.0 (5.0 - 8.0) 09/26/21 09:13 Ur Specific [place] 1.010 (1.000-1.030) 09/26/21 09:13 Urine Protein Negative (NEGATIVE) 09/26/21 09:13 Urine Glucose (UA) Negative (NEGATIVE) 09/26/21 09:13 Urine Ketones Negative (NEGATIVE) 09/26/21 09:13 Urine Blood Negative (NEGATIVE) 09/26/21 09:13 Urine Nitrite Negative (NEGATIVE) 09/26/21 09:13 Urine Bilirubin Negative (NEGATIVE) 09/26/21 09:13 Urine Urobilinogen Normal (NORMAL) 09/26/21 09:13 Ur Leukocyte Esterase Negative (NEGATIVE) 09/26/21 09:13 Urine RBC 0-2 /HPF (0-3) 09/25/21 04:00 Urine WBC 0-2 /HPF (0-5) 09/25/21 04:00 Ur Squamous Epith Cells Rare /HPF (NEGATIVE) 09/25/21 04:00 Urine Bacteria Negative /HPF (NEGATIVE) 09/25/21 04:00 Ur Culture Indicated? No/not indicated 09/25/21 04:00 SARS-CoV-2 (PCR) Negative (NEGATIVE) 09/24/21 23:58 Influenza Type A (PCR) Negative (NEGATIVE) 09/24/21 23:58 Influenza Type B (PCR) Negative (NEGATIVE) 09/24/21 23:58 RSV (PCR) Negative (NEGATIVE) 09/24/21 23:58 Tissue Pathology To follow 09/26/21 09:30 Plan (1) Incarcerated umbilical hernia: Status: Acute (2) Abdominal pain: Status: Acute Qualifiers: Abdominal location: periumbilical Qualified Code(s): R10.33 - Periumbilical pain (3) HTN (hypertension): Status: Acute Qualifiers: Hypertension type: primary hypertension Qualified Code(s): I10 - Essential (primary) hypertension (4) Diabetes: Status: Acute Qualifiers: Diabetes mellitus complication status: without complication 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
[2021-09-27] MEDS: SNACK - Diabetic Appropriate PO SCH (20:50)
[2021-09-28] MEDS: D5 1/2 NS 1,000 ML 1,000 ML IV SCH (04:06)
[2021-09-28 06:44] LABS: BLOOD UREA NITROGEN 7 mg/dL (7-18); CALCIUM 7.8 mg/dL (8.5-10.1); CARBON DIOXIDE 26.9 mmol/L (21-32); CHLORIDE 103 mmol/L (98-107); COR NA(FOR HYPERGLY) 138 mmol/L (136-145); CREATININE 0.56 mg/dL (0.55-1.02); SODIUM 137 mmol/L (136-145); eGFR NON BLACK RACES > 60 (>60)
[2021-09-28 06:50] LABS: BASOPHILS % (AUTO) 0.3 % (0.2-1.0); EOSINOPHILS # (AUTO) 0.2 x10^3/uL (0.0-0.2); EOSINOPHILS % (AUTO) 2.5 % (0.9-2.9); HEMATOCRIT 35.1 % (36.0-47.0); HEMOGLOBIN 12.1 g/dL (12.0-16.0); LYMPHOCYTES % (AUTO) 14.6 % (21.0-51.0); MEAN CORPUSCULAR HEMOGLOBIN 29.9 pg (27.0-34.0); MEAN CORPUSCULAR HGB CONC 34.5 g/dL (33.0-35.0); MEAN CORPUSCULAR VOLUME 86.7 fL (80.0-100.0); MEAN PLATELET VOLUME 8.9 fL (7.4-11.0); MONOCYTES # (AUTO) 0.5 x10^3/uL (0.3-0.8); NEUTROPHILS # (AUTO) 5.1 x10^3/uL (2.2-4.8); NEUTROPHILS % (AUTO) 75.6 % (42.0-75.0); RED BLOOD COUNT 4.05 X10^6/uL (3.5-5.4); RED CELL DISTRIBUTION WIDTH 14.2 % (11.6-16.5); WHITE BLOOD COUNT 6.7 X10^3/uL (3.6-10.0)
[2021-09-28 08:17] VITALS: BP 132/73
[2021-09-28] MEDS: GLUCOPHAGE PO SCH (08:30)
[2021-09-28] MEDS: COZAAR PO SCH (08:30)
[2021-09-28] MEDS: ZOFRAN INJ 4 MG VIAL IVP PRN (08:35)
--- NOTE | 2021-09-28 08:56 | RAD ---
HISTORYPostop coughSTUDYChest AP portableCOMPARISONNoneFINDINGSHeart is upper limits normal in size. No congestive heart failure is noted. No acute alveolar infiltrates or pleural effusions are identified. Bony thorax is unremarkable.IMPRESSIONNo significant abnormality identifiedElectronically signed by: ABRAN MARIN (Sep 28, 2021 08:54:37)
--- NOTE | 2021-09-28 10:38 | W.DIS.FURT ---
Summary of Discharge Discharge Summary of Date Date of Exam: 09/28/21 Admission Date Date of Admission: 09/24/21 Admission Diagnosis Patient Problems (Updated 09/25/21 @ 11:25 by Digna King) Incarcerated umbilical hernia (Acute) K42.0 Abdominal pain (Acute) R10.9 Hospital Course: Ms Davison is a 56y/o female with a PMH of diabetes, HTN and several abdominal hernia repairs presented for outpatient CTAP on 09/23/21 due to increased abdominal pain. Patient has a hx of 3 hernia repairs, last one in 2019. She denies N/V/D or constipation. Denies fever or chills. CTAP showed incarcerated umbilical ventral abdominal wall hernia, no strangulation or obstruction noted and recommended surgical consulted. Patient was notified and came to the ER for evaluation. She has some mild abdominal discomfort. She is NPO pending Dr Osborne's evaluation. She was started on IV fluids, IV antibiotics and pain control. Dr Osborne evaluated the patient and patient was taken for surgical repair. She tolerated the procedure well with no complications. She did well post-op, pain was controlled. Her diet was advanced as tolerated. She was ambulating to the bathroom. Her labs were monitored daily. She will follow up with PCP in one week and Dr Osborne as scheduled for staple removal. She was stable for discharge. Vital Signs: Vital Signs (72 hours) 09/25/21 12:00 09/25/21 16:00 09/25/21 19:00 Temperature 98.9 F 98.9 F Pulse Rate Pulse Rate [Right] 61 59 L Respiratory Rate 18 18 Blood Pressure Blood Pressure [Left Arm] Blood Pressure [Right Arm] 141/66 129/64 O2 Sat by Pulse Oximetry 94 L 96 Oxygen Delivery Method Room Air Room Air Room Air Oxygen Flow Rate 09/25/21 20:00 09/26/21 00:00 09/26/21 04:00 Temperature 98.2 F 98.4 F 98.3 F Pulse Rate Pulse Rate [Right] 59 L 52 L 51 L Respiratory Rate 20 18 18 Blood Pressure Blood Pressure [Left Arm] 128/68 Blood Pressure [Right Arm] 165/78 130/64 O2 Sat by Pulse Oximetry 94 L 97 97 Oxygen Delivery Method Room Air Room Air Oxygen Flow Rate 09/26/21 07:00 09/26/21 08:00 09/26/21 08:28 Temperature 97.8 F Pulse Rate 60 Pulse Rate [Right] 52 L Respiratory Rate 18 18 Blood Pressure 135/80 Blood Pressure [Left Arm] 118/59 Blood Pressure [Right Arm] O2 Sat by Pulse Oximetry 96 93 L Oxygen Delivery Method Room Air Room Air Oxygen Flow Rate 09/26/21 08:15 09/26/21 10:53 09/26/21 10:30 Temperature 97.5 F L Pulse Rate 86 Pulse Rate [Right] Respiratory Rate 16 18 18 Blood Pressure 129/69 Blood Pressure [Left Arm] Blood Pressure [Right Arm] O2 Sat by Pulse Oximetry 95 Oxygen Delivery Method Nasal Cannula Oxygen Flow Rate 09/26/21 10:35 09/26/21 10:40 09/26/21 10:45 Temperature Pulse Rate 86 81 84 Pulse Rate [Right] Respiratory Rate 18 18 18 Blood Pressure 125/71 131/76 140/70 Blood Pressure [Left Arm] Blood Pressure [Right Arm] O2 Sat by Pulse Oximetry 97 97 97 Oxygen Delivery Method Nasal Cannula Nasal Cannula Nasal Cannula Oxygen Flow Rate 09/26/21 10:50 09/26/21 10:55 09/26/21 11:00 Temperature Pulse Rate 74 80 74 Pulse Rate [Right] Respiratory Rate 18 18 18 Blood Pressure 127/67 135/69 135/69 Blood Pressure [Left Arm] Blood Pressure [Right Arm] O2 Sat by Pulse Oximetry 96 96 96 Oxygen Delivery Method Nasal Cannula Nasal Cannula Nasal Cannula Oxygen Flow Rate 09/26/21 11:00 09/26/21 10:01 09/26/21 11:27 Temperature 98.3 F Pulse Rate Pulse Rate [Right] 71 Respiratory Rate 18 18 18 Blood Pressure Blood Pressure [Left Arm] 124/66 Blood Pressure [Right Arm] O2 Sat by Pulse Oximetry 97 Oxygen Delivery Method Nasal Cannula Oxygen Flow Rate 2 09/26/21 11:42 09/26/21 11:57 09/26/21 12:12 Temperature 98.3 F 98.4 F 98.3 F Pulse Rate Pulse Rate [Right] 74 55 L 55 L Respiratory Rate 18 18 18 Blood Pressure Blood Pressure [Left Arm] 123/63 128/67 123/62 Blood Pressure [Right Arm] O2 Sat by Pulse Oximetry 97 98 98 Oxygen Delivery Method Nasal Cannula Nasal Cannula Nasal Cannula Oxygen Flow Rate 2 2 2 09/26/21 12:23 09/26/21 11:23 09/26/21 11:30 Temperature Pulse Rate Pulse Rate [Right] Respiratory Rate 18 18 18 Blood Pressure Blood Pressure [Left Arm] Blood Pressure [Right Arm] O2 Sat by Pulse Oximetry Oxygen Delivery Method Oxygen Flow Rate 09/26/21 12:53 09/26/21 12:27 09/26/21 13:27 Temperature 97.6 F 97.8 F Pulse Rate Pulse Rate [Right] 63 53 L Respiratory Rate 18 18 18 Blood Pressure Blood Pressure [Left Arm] 126/59 129/64 Blood Pressure [Right Arm] O2 Sat by Pulse Oximetry 96 99 Oxygen Delivery Method Room Air Nasal Cannula Oxygen Flow Rate 09/26/21 14:27 09/26/21 15:27 09/26/21 16:00 Temperature 98.2 F 98.1 F 97.8 F Pulse Rate Pulse Rate [Right] 50 L 50 L 50 L Respiratory Rate 18 18 20 Blood Pressure Blood Pressure [Left Arm] 143/74 120/63 143/74 Blood Pressure [Right Arm] O2 Sat by Pulse Oximetry 98 97 98 Oxygen Delivery Method Nasal Cannula Nasal Cannula Nasal Cannula Oxygen Flow Rate 2 2 2 09/26/21 19:45 09/26/21 19:00 09/26/21 20:00 Temperature 98.0 F Pulse Rate 98 H Pulse Rate [Right] 55 L Respiratory Rate 18 Blood Pressure Blood Pressure [Left Arm] 117/64 Blood Pressure [Right Arm] O2 Sat by Pulse Oximetry 60 L 98 Oxygen Delivery Method Room Air Nasal Cannula Oxygen Flow Rate 2 09/27/21 00:00 09/27/21 04:00 09/27/21 04:57 Temperature 98.2 F 98.6 F Pulse Rate Pulse Rate [Right] 67 57 L Respiratory Rate 18 18 18 Blood Pressure Blood Pressure [Left Arm] 102/55 115/59 Blood Pressure [Right Arm] O2 Sat by Pulse Oximetry 98 97 Oxygen Delivery Method Nasal Cannula Nasal Cannula Oxygen Flow Rate 2 2 09/27/21 05:27 09/27/21 07:00 09/27/21 08:00 Temperature 98.1 F Pulse Rate Pulse Rate [Right] 58 L Respiratory Rate 18 18 Blood Pressure Blood Pressure [Left Arm] 107/63 Blood Pressure [Right Arm] O2 Sat by Pulse Oximetry 95 Oxygen Delivery Method Room Air Room Air Oxygen Flow Rate 09/27/21 08:50 09/27/21 09:50 09/27/21 12:00 Temperature 98.0 F Pulse Rate Pulse Rate [Right] 62 Respiratory Rate 18 18 18 Blood Pressure Blood Pressure [Left Arm] 118/62 Blood Pressure [Right Arm] O2 Sat by Pulse Oximetry 95 Oxygen Delivery Method Room Air Oxygen Flow Rate 09/27/21 13:42 09/27/21 14:12 09/27/21 16:00 Temperature 98.4 F Pulse Rate Pulse Rate [Right] 62 Respiratory Rate 18 18 18 Blood Pressure Blood Pressure [Left Arm] 131/83 Blood Pressure [Right Arm] O2 Sat by Pulse Oximetry 95 Oxygen Delivery Method Room Air Oxygen Flow Rate 09/27/21 16:48 09/27/21 17:38 09/27/21 17:48 Temperature Pulse Rate Pulse Rate [Right] Respiratory Rate 22 20 18 Blood Pressure Blood Pressure [Left Arm] Blood Pressure [Right Arm] O2 Sat by Pulse Oximetry Oxygen Delivery Method Oxygen Flow Rate 09/27/21 18:08 09/27/21 18:38 09/27/21 19:00 Temperature Pulse Rate Pulse Rate [Right] Respiratory Rate 18 18 Blood Pressure Blood Pressure [Left Arm] Blood Pressure [Right Arm] O2 Sat by Pulse Oximetry Oxygen Delivery Method Room Air Oxygen Flow Rate 09/27/21 20:00 09/28/21 00:00 09/28/21 03:58 Temperature 98.3 F 98.6 F 98.6 F Pulse Rate Pulse Rate [Right] 60 63 81 Respiratory Rate 20 20 18 Blood Pressure Blood Pressure [Left Arm] 112/61 117/56 119/59 Blood Pressure [Right Arm] O2 Sat by Pulse Oximetry 91 L 95 97 Oxygen Delivery Method Room Air Room Air Room Air Oxygen Flow Rate 09/28/21 07:00 09/28/21 08:00 Temperature 99.8 F H Pulse Rate Pulse Rate [Right] 65 Respiratory Rate 20 Blood Pressure Blood Pressure [Left Arm] 132/73 Blood Pressure [Right Arm] O2 Sat by Pulse Oximetry 94 L Oxygen Delivery Method Room Air Room Air Oxygen Flow Rate Labs: Laboratory Last Values WBC 6.7 X10^3/uL (3.6-10.0) 09/28/21 05:00 RBC 4.05 X10^6/uL (3.5-5.4) 09/28/21 05:00 Hgb 12.1 g/dL (12.0-16.0) 09/28/21 05:00 Hct 35.1 % (36.0-47.0) L 09/28/21 05:00 MCV 86.7 fL (80.0-100.0) 09/28/21 05:00 MCH 29.9 pg (27.0-34.0) 09/28/21 05:00 MCHC 34.5 g/dL (33.0-35.0) 09/28/21 05:00 RDW 14.2 % (11.6-16.5) 09/28/21 05:00 Plt Count 166 X10^3/uL (150.0-450.0) 09/28/21 05:00 MPV 8.9 fL (7.4-11.0) 09/28/21 05:00 Neut % (Auto) 75.6 % (42.0-75.0) H 09/28/21 05:00 Lymph % (Auto) 14.6 % (21.0-51.0) L 09/28/21 05:00 [place] % (Auto) 7.0 % (0.0-13.0) 09/28/21 05:00 Eos % (Auto) 2.5 % (0.9-2.9) 09/28/21 05:00 Baso % (Auto) 0.3 % (0.2-1.0) 09/28/21 05:00 Neut # (Auto) 5.1 x10^3/uL (2.2-4.8) H 09/28/21 05:00 Lymph # (Auto) 1.0 X10^3/uL (1.3-2.9) L 09/28/21 05:00 [place] # (Auto) 0.5 x10^3/uL (0.3-0.8) 09/28/21 05:00 Eos # (Auto) 0.2 x10^3/uL (0.0-0.2) 09/28/21 05:00 Baso # (Auto) 0.0 X10^3/uL (0.0-0.1) 09/28/21 05:00 Absolute Nucleated RBC 0.0 /100WBC 09/28/21 05:00 Sodium 137 mmol/L (136-145) 09/28/21 06:36 Corrected Sodium 138 mmol/L (136-145) 09/28/21 06:36 Potassium 3.5 mmol/L (3.5-5.1) 09/28/21 06:36 Chloride 103 mmol/L (98-107) 09/28/21 06:36 Carbon Dioxide 26.9 mmol/L (21-32) 09/28/21 06:36 BUN 7 mg/dL (7-18) 09/28/21 06:36 Creatinine 0.56 mg/dL (0.55-1.02) 09/28/21 06:36 Est GFR (MDRD) Af Amer > 60 (>60) 09/28/21 06:36 Est GFR (MDRD) Non-Af > 60 (>60) 09/28/21 06:36 Glucose 140 mg/dL (65-99) H 09/28/21 06:36 POC Glucose (mg/dL) 134 mg/dL (65-99) H 09/28/21 05:51 Calcium 7.8 mg/dL (8.5-10.1) L 09/28/21 06:36 Corrected Calcium 8.7 mg/dL (8.5-10.1) 09/27/21 00:47 Magnesium 2.4 mg/dL (1.7-2.9) 09/26/21 04:27 Total Bilirubin 0.60 mg/dL (0.2-1.0) 09/27/21 00:47 AST 55 Units/L (15-37) H 09/27/21 00:47 ALT 88 Units/L (12-78) H 09/27/21 00:47 Alkaline Phosphatase 79 Units/L (46-116) 09/27/21 00:47 Total Protein 6.2 g/dL (6.4-8.2) L 09/27/21 00:47 Albumin 2.9 g/dL (3.4-5.0) L 09/27/21 00:47 Globulin 3.3 g/dL (2.5-4.5) 09/27/21 00:47 Albumin/Globulin Ratio 0.9 Ratio (1.1-2.1) L 09/27/21 00:47 Amylase 50 Units/L (25-115) 09/24/21 23:40 Lipase 94 Units/L (73-393) 09/24/21 23:40 Specimen Type Catherized urine 09/26/21 09:13 Urine Color Yellow (YELLOW) 09/26/21 09:13 Urine Appearance Clear (CLEAR) 09/26/21 09:13 Urine pH 6.0 (5.0 - 8.0) 09/26/21 09:13 Ur Specific [place] 1.010 (1.000-1.030) 09/26/21 09:13 Urine Protein Negative (NEGATIVE) 09/26/21 09:13 Urine Glucose (UA) Negative (NEGATIVE) 09/26/21 09:13 Urine Ketones Negative (NEGATIVE) 09/26/21 09:13 Urine Blood Negative (NEGATIVE) 09/26/21 09:13 Urine Nitrite Negative (NEGATIVE) 09/26/21 09:13 Urine Bilirubin Negative (NEGATIVE) 09/26/21 09:13 Urine Urobilinogen Normal (NORMAL) 09/26/21 09:13 Ur Leukocyte Esterase Negative (NEGATIVE) 09/26/21 09:13 Urine RBC 0-2 /HPF (0-3) 09/25/21 04:00 Urine WBC 0-2 /HPF (0-5) 09/25/21 04:00 Ur Squamous Epith Cells Rare /HPF (NEGATIVE) 09/25/21 04:00 Urine Bacteria Negative /HPF (NEGATIVE) 09/25/21 04:00 Ur Culture Indicated? No/not indicated 09/25/21 04:00 SARS-CoV-2 (PCR) Negative (NEGATIVE) 09/24/21 23:58 Influenza Type A (PCR) Negative (NEGATIVE) 09/24/21 23:58 Influenza Type B (PCR) Negative (NEGATIVE) 09/24/21 23:58 RSV (PCR) Negative (NEGATIVE) 09/24/21 23:58 Tissue Pathology To follow 09/26/21 09:30 Reason For Visit: INCARCERATED SUPRAUMBILICAL HERNIA, ABDOMINAL PAIN Discharge Diagnosis All Active Problems (Updated 09/25/21 @ 11:25 by Digna King) Diabetes (Acute) HTN (hypertension) (Acute) Incarcerated umbilical hernia (Acute) Abdominal pain (Acute) Plan of Treatment: Continue with present treatment and follow up plan. Pt is to keep follow up appointment as instructed and take medications as ordered. Discharge Medications Discharge Medications: Penicillins Allergy (Verified 09/24/21 23:31) CONTINUE taking the following medications losartan 50 mg tablet 50 mg PO DAILY 09/24/21 [History] metformin 850 mg tablet 850 mg PO DAILY 09/24/21 [History] New Prescriptions ondansetron 4 mg disintegrating tablet 4 mg PO Q8H PRN nausea and vomiting 5 days #20 tabs 09/28/21 [Rx] Discharge Disposition Assessment: No acute distress noted at discharge. Discharge Plan Discharge Plan Hospital Course: Ms Davison is a 56y/o female with a PMH of diabetes, HTN and several abdominal hernia repairs presented for outpatient CTAP on 09/23/21 due to increased abdominal pain. Patient has a hx of 3 hernia repairs, last one in 2019. She denies N/V/D or constipation. Denies fever or chills. CTAP showed incarcerated umbilical ventral abdominal wall hernia, no strangulation or obstruction noted and recommended surgical consulted. Patient was notified and came to the ER for evaluation. She has some mild abdominal discomfort. She is NPO pending Dr Osborne's evaluation. She was started on IV fluids, IV antibiotics and pain control. Dr Osborne evaluated the patient and patient was taken for surgical repair. She tolerated the procedure well with no complications. She did well post-op, pain was controlled. Her diet was advanced as tolerated. She was ambulating to the bathroom. Her labs were monitored daily. She will follow up with PCP in one week and Dr Osborne as scheduled for staple removal. She was stable for discharge. Patient Disposition: 01 HOME, SELF-CARE Condition: Stable Health Concerns: Post Hospitalization: new medications and changes needed to prevent readmission or further decline. Pt educated and given instructions on all concerns. Care Plan Goals: Problem: Pain/Alteration in Comfort Goal: Improve/ Resolve Pain; Achieve Pain Tolerance Instructions: Take pain medications as prescribed. Contact your primary care provider if your pain is unrelieved or worsens. Follow up with primary care provider as directed. Plan of Treatment: Continue with present treatment and follow up plan. Pt is to keep follow up appointment as instructed and take medications as ordered. Assessment: No acute distress noted at discharge. Prescription drug monitoring program results: PDMP reviewed and no concerns identified Prescriptions: Continued losartan 50 mg tablet 50 mg PO DAILY Label Comments: TAKE 1 TABLET BY MOUTH DAILY metformin 850 mg tablet 850 mg PO DAILY Label Comments: TAKE 1 TABLET BY MOUTH DAILY Follow ups/Referrals Follow ups/Referrals: DEMETRIO JOHNS [STAFF PHYSICIAN] - 10/11/21 1:00 pm Digna King [Primary Care Provider] - 10/03/21 2:50 pm Instructions Instructions: How to Use an Incentive Spirometer, Diabetes Mellitus and Sick Day Management, Hernia, Adult, [id number], Living With Diabetes, Open Hernia Repair, Adult, Care After, Puat-cd-Hfwc, Opioid Pain Medicine Management, [id number], How to Change Your Wound Dressing, Flpe-ts-Ieuf, Sutures, [place], or Adhesive Wound Closure, Thiv-iz-Qipd, Incision Care, Adult, [id number]-[id number], Managing Your Hypertension, How to Prevent Constipation After Surgery Activity Restrictions/Additional Instructions: Change dressing as needed to drain site. Leave abdominal dressing intact until follow up with Dr. Johns. Contact MD with any concerns. Wear Abdominal binder when up. Take prescribed medication as directed. Follow up appointments with Dr. King and Dr. Johns. Taken written prescription to pharmacy to be filled for pain medication written by Dr. Johns. Stand Alone Forms: Precautions for [address] [facility], Patient Portal, Social Distancing Print Language: POLISH Patient Education Addl Reference Links: Hernia, Adult [email or web address]
== END 2021-09-28 12:30 | disposition home or self-care (01) | DRG 355 ==
LOC: ER 22:28 → MED/SURG 23:59
PROVIDERS: ADMIT Internal Medicine; ATTEND Internal Medicine
DX: K43.6 Other and unspecified ventral hernia with obstruction, without gangrene; R94.5 Abnormal results of liver function studies; E11.65 Type 2 diabetes mellitus with hyperglycemia; R10.33 Periumbilical pain; Z20.822 Contact with and (suspected) exposure to COVID-19; I10 Essential (primary) hypertension